=== PATIENT | male | born 1950 | race Caucasian/White ===

== ENCOUNTER → 2020-02-06 09:06 | Outpatient (CLI) | payer OTHER, SELFPAY ==
--- NOTE | ~2020-02-06 | US_ITS ---
EXAMINATION: US soft tissue UE LT EXAM DATE: 02/06/2020 09:37 INDICATION: Left lateral upper arm palpable abnormality. TECHNIQUE: Multiple grayscale and Doppler images of the symptomatic left upper extremity regions were obtained (by a technologist who performed the scan) and subsequently reviewed. There is no prior st udy for comparison. FINDINGS: Scanning in the left arm area of clinical concern demonstrates several focal regions which are isoech oic to the surrounding subcutaneous fat, measuring 1.2 x 0.8 and 1.6 x 0.8 cm, most likely encapsulat ed lipomas. There is a 3rd measuring 1.7 x 0.5 cm, and possibly 4th measuring 1.2 x 0.6 cm. 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 Reviewed, dictated and finalized at location A. IMPRESSION: Several left upper arm subcutaneous focal regions most likely encap sulated lipomas.
== END ==
DX: M79.89 Other specified soft tissue disorders (principal)
CPT/HCPCS: 76882

== ENCOUNTER 2022-07-31 14:31 | Outpatient (CLI) | payer OTHER, SELFPAY ==
--- NOTE | ~2022-07-31 | XR_ITS ---
XR abdomen/kub 1V DATE: 07/31/2022 14:52 INDICATION: Acute abdominal pain. Constipation. TECHNIQUE: AP single view COMPARISON: None FINDINGS: A reservoir overlies the lower right pelvic fossa, with associated tube extending over the right inguinal area. There is no evidence of bowel obstruction. The psoas shadows are intact. No visceromegaly or signific ant abnormal calcification is noted. Minimal dextroscoliosis and mild degenerative change of the lumbar spine. IMPRESSION: Nonspecific abdomen; no bowel obstruction Reviewed, dictated and finalized at Location A. Reviewed, dictated and finalized at location B. 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
== END 2022-07-31 14:32 | disposition home or self-care (01) ==
PROVIDERS: PCP Internal Medicine; Visit Provider Internal Medicine
DX: R10.9 Unspecified abdominal pain (principal)
CPT/HCPCS: 74018

== ENCOUNTER → 2022-08-01 10:07 | Outpatient (CLI) | payer OTHER, SELFPAY ==
--- NOTE | ~2022-08-01 | US_ITS ---
EXAMINATION: US venous doppler UE DATE: 08/01/2022 10:37 INDICATION: Localized swelling, mass and lump at the left upper limb TECHNIQUE: Grayscale images without and with compression and Doppler images of the left upper extremi ty veins were obtained. COMPARISON: 02/06/2020 FINDINGS: The left internal jugular vein, subclavian vein, axillary vein, brachial vein, basilic vein, cephalic vein, radial vein, and ulnar vein are patent. No significant interval change in a lobular subcutaneo us mass versus a few smaller independent masses with relatively poorly defined margins which appear s lightly hyperechoic to the surrounding subcutaneous fat. This measures 3.3 x 0.[address] current [address] udy versus 3.1 x 0.8 cm on the prior study. IMPRESSION: 1. Patent left upper extremity veins. No evidence of venous thrombosis. 2. Stable appearance of a 3.3 x 0.8 cm lobular subcutaneous mass versus collection independent masses at the region of concern at the lateral left upper arm most likely representing a lipoma/lipomas. Reviewed, dictated and finalized at location A. 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 Patent left upper extremity veins. No evidence of venous thrombosis. 2. Stable appearance of a 3.3 x 0.8 cm lobular subcutaneous mass versus collect ion independent masses at the region of concern at the lateral left upper arm m ost likely representing a lipoma/lipomas.
== END ==
PROVIDERS: PCP Internal Medicine; Visit Provider Internal Medicine
DX: R22.32 Localized swelling, mass and lump, left upper limb (principal)
CPT/HCPCS: 93971

== ENCOUNTER 2022-10-04 10:47 | Emergency (ER) | payer OTHER, SELFPAY ==
--- NOTE | 2022-10-04 10:56 | ED.URI ---
HPI - URI/Sore Throat General Chief Complaint: Upper Respiratory Infection Stated Complaint: Sore throat Time Seen by Provider: 10/04/22 10:52 Source: patient Mode of arrival: ambulatory Limitations: no limitations History of Present Illness HPI Narrative: Srinivasan is a 72-year-old male patient presenting to the clinic today with complaints of a sore throat, headache, cough, and fever blister to the left lower lip. He reports fever blister is been there for approximately 1 week and he has had the cough and sore throat times 4-5 days. She reports that he has recently got back from vacation. Denies any fever or chills. He denies any nasal congestion. MD elicited complaint: cough, sore throat and other (Headache, fever blister) Related Data Home Medications Medication Instructions Recorded Confirmed Trelstar IM [id number] 10/04/22 amlodipine 5 mg tablet mg 10/04/22 darolutamide 300 mg tablet (Nubeqa) 1,200 mg PO 10/04/22 oxybutynin chloride 10 mg mg PO 10/04/22 tablet,extended release 24 hr paroxetine HCl 20 mg tablet mg PO 10/04/22 10/04/22 Allergies Allergy/AdvReac Type Severity Reaction Status Date / Time No Known Allergies Allergy Verified 10/04/22 11:03 Review of Systems Review of Systems: Pertinent positives per HPI. Patient denies any fever, chills, rash, headache, visual changes, dizziness, cough, shortness of breath, chest pain, palpitations, nausea, vomiting, diarrhea, constipation, abdominal pain, or any urinary issues. PMFSH Comments At the time of my signature, I reviewed and agree with the nursing past medical, surgical, social, and family history. There is no relevant family history pertinent to the patient complaint. Exam Narrative: General: Well-developed, well nourished, in no apparent distress Head: Normocephalic, atraumatic Eyes: Pupils equally round and reactive to light bilaterally, EOM intact, sclera and conjunctive clear, no discharge, lids normal Ears: TMs intact and clear, ear canals clear, no drainage, grossly hearing normal. Nose: Nares patent, clear discharge, no inflammation, no sinus tenderness. Mouth: Oral pharynx red without lesions or masses, good dentition, MMM. Fever blister to the left lower lip tender to palpation Neck: Supple, trachea midline, no enlargement of anterior or posterior cervical nodes, no thyroid masses or goiter palpable. Cardio: Regular rate and rhythm, s1 and s2 normal, no murmur appreciated. Resp: Clear to auscultation bilaterally, no rhonchi, rales, wheezing or rubs Course Course Emergency Course: Portions of this record may have been created with voice recognition software. Level of Care: Express Care Visit Vital Signs Vital signs: Vital signs reviewed MDM - URI/Sore Throat MDM Narrative Medical decision making narrative: At the time of visit patient is resting comfortably on the exam table. Strep screen and COVID test was obtained and were negative in the clinic today. I suspect patient has viral pharyngitis,uri, cold sore. Will send in prescription for triamcinolone dental paste and Tessalon Perles. Supportive measures were discussed with the patient he voiced understanding discharge instructions and agrees to treatment plan. Differential Diagnosis Differential diagnosis: Likely upper respiratory infection, otitis media, sinusitis, viral infection, bronchitis, influenza, pharyngitis and other (COVID) Discharge Plan Discharge Clinical Impression: Cold sore Upper respiratory infection Qualifiers: URI type: unspecified URI Qualified Code(s): J06.9 - Acute upper respiratory infection, unspecified Pharyngitis Qualifiers: Pharyngitis/tonsillitis etiology: unspecified etiology Qualified Code(s): J02.9 - Acute pharyngitis, unspecified Patient Disposition: Home, Self-Care Condition: Stable Instructions: Antibiotic Form, Pharyngitis (ED), Upper Respiratory Infection (ED) Additional Instructions: Strep screen and COV
[2022-10-04 11:00] VITALS: BP 131/96; PULSE 82; RESP 18; TEMP 37.2; O2SAT 99
[2022-10-04 11:23] VITALS: BP 131/96; PULSE 82; RESP 18; TEMP 37.2; O2SAT 99
== END 2022-10-04 11:49 | disposition home or self-care (01) ==
PROVIDERS: Emergency Provider Nurse Practitioner Family; PCP Internal Medicine
DX: B00.1 Herpesviral vesicular dermatitis (principal); J06.9 Acute upper respiratory infection, unspecified; J02.9 Acute pharyngitis, unspecified; Z20.822 Contact with and (suspected) exposure to COVID-19; I10 Essential (primary) hypertension; Z85.46 Personal history of malignant neoplasm of prostate; Z86.16 Personal history of COVID-19
CPT/HCPCS: 87081; 87426; 87880; 99213; C9803; G0463

== ENCOUNTER 2024-01-29 11:12 | Outpatient (CLI) | payer OTHER, SELFPAY ==
--- NOTE | ~2024-01-29 | XR_ITS ---
EXAMINATION: XR cervical spine 4-5V DATE: 01/29/2024 11:46 INDICATION: Neck pain. TECHNIQUE: 7 views of cervical spine were obtained. COMPARISON: None. FINDINGS: There is 15 degrees dextroscoliosis of cervical spine thoracic spine. There is 2 mm anterol isthesis of C5 on C6. Vertebral body heights are normal. There is severely decreased disc height at C 5-C6 and C6-C7. There is multilevel facet joint osteoarthritis, severe on the left at C4-C5 and bilat erally at C7-T1. On the left, there is mild neural foraminal stenosis at C4-C5, C5-C6, and C6-C7. The re is mild central canal stenosis at C5-C6 and C6-C7. No prevertebral soft tissue swelling. IMPRESSION: 1. Severe cervical spondylosis. 2. Cervicothoracic dextroscoliosis. Reviewed, dictated and finalized at location A.
--- NOTE | ~2024-01-29 | XR_ITS ---
EXAMINATION: XR lumbar spine min 4V DATE: 01/29/2024 11:46 INDICATION: Low back pain. TECHNIQUE: 3 views of lumbar spine including standing views were obtained. COMPARISON: None. FINDINGS: There is 7 degrees dextrocurvature of thoracolumbar spine. There is 3 mm retrolisthesis of L1 on L2 and L2 on L3 and 3 mm anterolisthesis of L4 on L5. Vertebral body heights are normal. There is moderately decreased disc height at L1-L2 and L2-L3, mildly decreased disc height at 4-L5, and sev erely decreased disc height at L5-S1. There is multilevel facet joint osteoarthritis, severe in lower lumbar spine. IMPRESSION: 1. Severe lumbar spondylosis. Reviewed, dictated and finalized at location A.
== END 2024-01-29 11:13 | disposition home or self-care (01) ==
LOC: MICIMG 11:16
PROVIDERS: PCP Internal Medicine; Visit Provider Internal Medicine
DX: M47.896 Other spondylosis, lumbar region (principal); M47.892 Other spondylosis, cervical region
CPT/HCPCS: 72050; 72110

== ENCOUNTER 2024-10-23 08:31 | Outpatient (CLI) | payer OTHER, SELFPAY ==
--- NOTE | ~2024-10-23 | DEXA_ITS ---
Bone Density Report Name: LIAM GOODSON Age: 74 Sex: Male Ethnicity: White Date of : 1950 Indication: osteopenia; height loss; cancer; Referring Provider: BENJA, AJIT Glover Study: Bone densitometry was performed. Exam Date: October 23, 2024 Accession number: [id number] Bone Density: Region BMD T-score Z-score Classification AP Spine(L1-L4) 1.066 -0.2 0.8 Normal Femoral Neck (Left) 0.728 -1.5 -0.2 Osteopenia Total Hip (Left) 0.806 -1.5 -0.7 Osteopenia Femoral Neck (Right) 0.702 -1.7 -0.4 Osteopenia Total Hip (Right) 0.819 -1.4 -0.6 Osteopenia Total Hip Mean 0.813 -1.5 -0.7 Osteopenia World Health Organization criteria for BMD impression classify patients as: Normal (T-score at or above -1.0), Osteopenia (T-score between -1.0 and -2.5), or Osteoporosis (T-score at or below -2.5). 10-year Fracture Risk(1): Major Osteoporotic Fracture 6.4% Hip Fracture 2.0% Reported Risk Factors: [place] (), Neck BMD=0.702, BMI=22.2 (1) FRAX(R) Version 3.08. Fracture probability calculated for an untreated patient. Fracture probability may be lower if the patient has received treatment. Previous Exams: -- Region Exam Age BMD T-score BMD Change BMD Change Date g/cm2 vs Baseline vs Previous -- AP Spine (L1-L4) 10/23/2024 74 1.066 -0.2 0.4% 0.4% 07/03/2017 67 1.061 -0.3 Total Hip(Left) 10/23/2024 74 0.806 -1.5 -14.4%* -0.2% 10/23/2024 74 0.808 -1.5 -14.1%* -14.1%* 07/03/2017 67 0.941 -0.6 Total Hip(Right) 10/23/2024 74 0.819 -1.4 -13.5%* -13.5%* 07/03/2017 67 0.946 -0.6 -- *Denotes significance at 95% confidence level, LSC for AP Spine = 0.022 g/cm2, LSC for Total Hip = 0.027 g/cm2 Clinical Information Provided by Patient: Has used the following medications: Vitamin D, Calcium Has the following medical conditions: Cancer Patient maximum height was 70 No regular weight bearing exercise Drinks caffeinated beverages Impression: The patient has low bone mass, based on the Right Femoral Neck T-score. The patient has an estimated ten-year risk of hip fracture of 2% and an estimated ten-year risk of major fracture of 6.4%, based on the WHO FRAX algorithm. The BMD for the Total Hip(Right) decreased, changing by -13.5% since the last DXA exam. Discussion: BONE DENSITY IS LOW AT ONE OR MORE SKELETAL SITES. This patient's lowest T-score is low at one or more skeletal sites. It meets the World Health Organization's (WHO) criteria for ?low bone mass? (T-score between -1.0 and -2.5). The patient's 10-year risk of fracture as calculated by FRAX is less than the threshold where pharmacological therapy is recommended by the National Osteoporosis Foundation (NOF). However, all treatment decisions require clinical judgment and consideration of individual patient factors, including patient preferences, comorbidities, previous drug use, risk factors not captured in the FRAX model (e.g., frailty, falls, vitamin D deficiency, increased bone turnover, interval significant decline in bone density) and possible under or overestimation of fracture risk by FRAX. The patient should follow a healthful lifestyle (good nutrition with adequate calcium and vitamin D, and appropriate weight-bearing exercise). Follow-Up: Consider repeating this study in 2 years to reassess this patient's status, or sooner if there is some new clinical indication. Reported by: MARTA on 10/23/2024 9:23:00 AM. Reviewed, dictated and finalized at location A.
== END 2024-10-23 08:32 | disposition home or self-care (01) ==
LOC: MICIMG 08:32
PROVIDERS: PCP Internal Medicine; Visit Provider Internal Medicine Medical Oncology
DX: M85.89 Other specified disorders of bone density and structure, multiple sites (principal); M81.0 Age-related osteoporosis without current pathological fracture; C61 Malignant neoplasm of prostate
CPT/HCPCS: 77080